=== PATIENT | female | born 1970 | race Caucasian/White ===

== ENCOUNTER 2019-11-02 05:57 | Observation (INO) ==
[2019-11-02] MEDS ORDERED: ASPIRIN 325 MG TABLET PO STA (06:22)
[2019-11-02] MEDS: NITROGLYCERIN SL 0.4 MG TABLET SL PRN ×2 (06:41→07:18)
[2019-11-02 06:47] LABS: Basophils # 0.1 10*3/uL (0.0-0.2); Basophils % 0.8 % (0.0-0.8); Eosinophils # 0.2 10*3/uL (0.0-0.87); Eosinophils % 2.4 % (0.00-10.9); Hematocrit 43.1 VOL% (35.7-47.0); Hemoglobin 14.1 GM/DL (12.0-16.0); Immature Granulocytes % 0.5 %; Immature Granulocytes Absolute 0.03 #; Lymphocytes # 1.9 10*3/uL (1.4-4.0); Lymphocytes % 28.3 % (21.3-54.2); Mean Corpuscular HGB Conc 32.7 GM/DL (32-36); Mean Corpuscular Volume 90.2 FL (87-102); Mean Platelet Volume 9.6 FL (9.6-12.0); Monocytes % 8.1 % (1.7-12.7); Neutrophils % 59.9 % (38.7-73.9); Platelet Count 274 T/CUMM (130-400); Red Blood Count 4.78 MC/CUMM (3.8-5.5); Red Cell Distribution Width 15.5 % (9.3-17.3); White Blood Count 6.7 T/CUMM (4-12)
[2019-11-02 06:54] LABS: Apearance,Urine CLEAR (Clear); Bilirubin,Urine Negative (Negative); Blood, Urine Moderate mg/dL (Negative); Glucose,Urine (UA) Negative (Negative); Ketones,Urine Negative (Negative); Mucus,Urine Occasional /LPF (Occasional); Nitrite,Urine Negative (Negative); Protein,Urine 100 MG/DL; RBC,Urine 3 /HPF (0-4); Squamous Epithelial Cell,Urine Occasional /HPF (0-10); Urine Color Yellow (Yellow); Urine Urobilinogen < 2.0 EU/DL (0.2-1.0); WBC,Urine 1 /HPF (0-6)
[2019-11-02 07:08] LABS: Calcium 8.2 MG/DL (8.5-10.1); Osmolality,Calculated 282.1 MOS/KG (273-304)
[2019-11-02 08:11] LABS: Barbiturates Screen,Urine Negative (Negative); Benzodiazepines Screen,Urine Negative (Negative); Cannabinoid Screen,Urine Positive (Negative); Opiate Screen,Urine Negative (Negative); Phencyclidine Screen,Urine Negative (Negative)
[2019-11-02] MEDS ORDERED: PROMETHAZINE 25 MG/1 ML VIAL IM PRN (10:14)
[2019-11-02] MEDS ORDERED: MORPHINE 4 MG/1 ML VIAL IV PRN (10:14)
[2019-11-02] MEDS ORDERED: ONDANSETRON 4 MG/2 ML VIAL IV PRN (10:14)
[2019-11-02] MEDS ORDERED: ENOXAPARIN 80 MG/0.8 ML SYRINGE SUBCUT SCH (10:30)
[2019-11-02] MEDS ORDERED: LACTATED RINGERS 1,000 ML IV SCH (10:30)
[2019-11-02 10:43] LABS: Thyroid Stimulating Hormone 1.42 uIU/ml (0.358-3.74)
[2019-11-02] MEDS ORDERED: MAGNESIUM SULF RIDER 2 GM in PREMIX 1 EACH IV ONE (11:15)
[2019-11-02] MEDS: PANTOPRAZOLE 40 MG TABLET PO SCH (11:25)
[2019-11-02] MEDS: NICOTINE 21 MG/24 HR PATCH TRANSDERM SCH (12:54)
[2019-11-02] MEDS: NITROGLYCERIN 2% OINT 1 INCH/GM PACK TOP SCH ×2 (13:54→17:06)
[2019-11-02] MEDS ORDERED: ENOXAPARIN 40 MG/0.4 ML SYRINGE SUBCUT SCH (15:00)
[2019-11-02] MEDS: ACETAMINOPHEN 325 MG TABLET PO PRN (16:29)
[2019-11-02] MEDS: METOPROLOL TARTRATE 25 MG TABLET PO SCH ×2 (16:30→21:02)
[2019-11-02] MEDS: GABAPENTIN 100 MG CAPSULE PO SCH (21:02)
[2019-11-03] MEDS: NITROGLYCERIN 2% OINT 1 INCH/GM PACK TOP SCH ×3 (00:43→12:06)
[2019-11-03 05:46] LABS: Basophils % 0.5 % (0.0-0.8); Eosinophils # 0.1 10*3/uL (0.0-0.87); Eosinophils % 2.4 % (0.00-10.9); Hematocrit 38.3 VOL% (35.7-47.0); Hemoglobin 12.4 GM/DL (12.0-16.0); Immature Granulocytes % 0.3 %; Immature Granulocytes Absolute 0.02 #; Lymphocytes # 2.1 10*3/uL (1.4-4.0); Lymphocytes % 35.6 % (21.3-54.2); Mean Corpuscular HGB Conc 32.4 GM/DL (32-36); Mean Corpuscular Volume 89.7 FL (87-102); Mean Platelet Volume 10.1 FL (9.6-12.0); Monocytes % 7.9 % (1.7-12.7); Neutrophils % 53.3 % (38.7-73.9); Platelet Count 258 T/CUMM (130-400); Red Blood Count 4.27 MC/CUMM (3.8-5.5); Red Cell Distribution Width 15.6 % (9.3-17.3); White Blood Count 5.8 T/CUMM (4-12)
[2019-11-03 06:08] LABS: Osmolality,Calculated 283.1 MOS/KG (273-304); Risk Ratio 7.75; VLDL CHOLESTEROL 26.8 MG/DL
[2019-11-03] MEDS: ACETAMINOPHEN 325 MG TABLET PO PRN (06:53)
[2019-11-03] MEDS ORDERED: REGADENOSON 0.4 MG/5 ML SYRINGE IV ONE (08:57)
[2019-11-03] MEDS ORDERED: ASPIRIN EC 325 MG TABLET PO SCH ×2 (09:00)
[2019-11-03] MEDS: PANTOPRAZOLE 40 MG TABLET PO SCH (10:10)
[2019-11-03] MEDS: GABAPENTIN 100 MG CAPSULE PO SCH (10:10)
[2019-11-03] MEDS: METOPROLOL TARTRATE 25 MG TABLET PO SCH ×2 (10:10→10:27)
[2019-11-03] MEDS: NICOTINE 21 MG/24 HR PATCH TRANSDERM SCH (10:10)
[2019-11-03 12:13] VITALS: BP 142/91
[2019-11-03] MEDS ORDERED: clonazePAM 0.5 MG TABLET PO SCH (21:00)
[2019-11-03] MEDS ORDERED: ROSUVASTATIN 20 MG TABLET PO SCH (21:00)
[2019-11-04] MEDS ORDERED: CITALOPRAM 20 MG TABLET PO SCH (09:00)
== END 2019-11-03 16:10 | disposition home or self-care (01) ==
LOC: N.ED 05:57 → N.EDINP 05:57 → SUATTDRO 10:14 → N.TELEN 10:57
PROVIDERS: ADMIT Internal Medicine; ATTEND Internal Medicine